=== PATIENT | male | born 1960 | race Caucasian/White ===

== ENCOUNTER 2017-03-27 19:19 | Emergency (ER) | payer BC ==
[2017-03-27] MEDS ORDERED: GENTAMICIN 0.3% OPHTH OINT 1 APPLIC OPHTH ONE (19:30)
[2017-03-27 19:35] VITALS: BP 136/82; TEMP 97.8; O2SAT 97
[2017-03-27] MEDS ORDERED: TETANUS,DIPHTHERIA,PERTUSSIS 1 EA SYG IM ONE (19:37)
[2017-03-27] MEDS ORDERED: TETRACAINE HCL 0.5% OPHTH SOL 1 DROP RIGHT_EYE ONE (19:37)
--- NOTE | 2017-03-27 19:42 | ED.PDOC ---
History of Present Illness - General Chief Complaint: Eye Problems Stated Complaint: possible foreign body in rt eye Time Seen by Provider: 03/27/17 19:22 Source: patient, RN notes reviewed, Vital Signs reviewed Exam Limitations: no limitations - History of Present Illness Initial Comments: Ramses Gonsales 56 y/o male seen in er today with foreign body right eye which happened while grinding metal at home.syated wearing safety glasses. Timing/Duration: yesterday EENT Location: eye (R) Prearrival Treatment: no prearrival treatment Improving Factors: nothing Worsening Factors: nothing Associated Symptoms: other - blurry vision right eye Allergies/Adverse Reactions: Allergies NO KNOWN ALLERGY Allergy (Verified 03/27/17 19:35) Home Medications: Ambulatory Orders Nasal Decongestant 03/27/17 Review of Systems - Review of Systems Constitutional: States: no symptoms reported EENTM: States: see HPI Respiratory: States: no symptoms reported Cardiology: States: no symptoms reported Gastrointestinal/Abdominal: States: no symptoms reported Genitourinary: States: no symptoms reported Musculoskeletal: States: no symptoms reported Skin: States: no symptoms reported Neurological: States: no symptoms reported Endocrine: States: no symptoms reported Hematologic/Lymphatic: States: no symptoms reported Past Medical History (General) - Patient Medical History Hx Cardiac Disorders: No Hx Hypertension: No Hx Thyroid Disease: No Hx MRSA: No Surgical History: no surgical history - Vaccination History Hx Tetanus, Diphtheria Vaccination: No Family Medical History - Family History Father Family History: Unknown Physical Exam - Physical Exam General Appearance: Alert, Comfortable, No apparent distress Eye Exam: right other - foreign body cornea temporal side VA 20/30 both eyes, bilateral normal Ear Exam: bilateral ear: auricle normal, canal normal, TM normal Nasal Exam: normal inspection Throat Exam: normal mouth inspection, pharynx normal Neck: non-tender, full range of motion, supple Cardiovascular/Respiratory: regular rate, rhythm, no M/R/G, normal peripheral pulses, normal breath sounds Abdominal Exam: non-tender, no organomegaly Neurologic: alert, normal mood/affect, oriented x 3 Skin Exam: normal color Progress - Progress Progress: 03/27/17 20:35 Vital Signs - 8 hr 03/27/17 19:32 Temperature 97.8 F Pulse Rate [ 71 Left] Respiratory 16 Rate Blood Pressure 136/82 [Right Arm] O2 Sat by Pulse 97 Oximetry Procedures - Eye Procedure Right Alcaine Drops Administered: Yes FB Removal from Eye Procedure: with cottin-tipped swab, with needle, with ashley drill Eye Irrigated w/ Saline (cc's): 20 - fluorescein test no abrasion cornea right eye Cyclogel 2 Drops Administered: No Antibiotic Oinment/Drps Admin: Gentamicin eye ointment Departure - Departure Clinical Impression: Foreign body of cornea, right Qualifiers: Encounter type: initial encounter Qualified Code(s): T15.01XA - Foreign body in cornea, right eye, initial encounter Time of Disposition: 20:38 Disposition: Discharge to Home or Self Care Condition: Good Departure Forms: ED Discharge - Pt. Copy, Patient Portal Self Enrollment Instructions: DI for Corneal Foreign Body-Eye Referrals: Myke Estrada MD [Primary Care Provider] - 1-2 Weeks Home Medications: Ambulatory Orders Nasal Decongestant 03/27/17 Additional Instructions: Continue with GENTAMICIN EYE OINTMENT TO RIGHT EYE 3 x a day for 3 days;Return to emergency room as needed
[2017-03-27] MEDS ORDERED: HYDROCOD/APAP 7.5/325 (ER DISP) #3 TAB PO ONE (20:40)
== END 2017-03-27 20:50 | disposition home or self-care (01) ==
LOC: ER 19:19
DX: T15.01XA Foreign body in cornea, right eye, initial encounter (principal); Z23 Encounter for immunization; X58.XXXA Exposure to other specified factors, initial encounter; Y92.009 Unspecified place in unspecified non-institutional (private) residence as the place of occurrence of the external cause

== ENCOUNTER → 2018-02-11 | Outpatient (CLI) | payer SELFPAY | LOC: LAB.O 16:58 | PROVIDERS: ATTEND Nurse Practitioner Family | DX: R50.9 Fever, unspecified (principal) ==